=== PATIENT | male | born 1940 | race Caucasian/White ===

== ENCOUNTER 2023-10-18 10:50 | Inpatient (IN) | payer MEDICARE, OTHER, SELFPAY ==
[2023-10-18] VITALS (14 sets, daily range): BP systolic 97–122; BP diastolic 55–77; PULSE 64–97; RESP 12–25; TEMP 36.4–38.1; O2SAT 88–95; BMI 24.3; BMI 23.8
--- NOTE | 2023-10-18 11:16 | ED_ITS ---
HPI - General Adult General Date Seen: 10/18/23 Chief complaint: Shortness of Breath/Dyspnea Stated complaint: Low O2, short of breath Time Seen by Provider: 10/18/23 11:07 History of Present Illness HPI narrative: This is an 83-year-old male with a past medical history of hypertension (lisinopril 5 mg, hydrochlorothiazide 12.5 mg), type 2 diabetes, COPD. He sees the [facility] clinic for PCP. He has been feeling sick since Wednesday night with fever and shortness of breath. Has a home oximeter and readings were 85%. He and his indicate that he began to feel ill 3 days ago on Wednesday evening. He had been out to [place] with his family on Wednesday and apparently was feeling fine at that time. Over the weekend he has had malaise, fatigue, poor appetite, cough. They have a home pulse oximeter and it was reading saturations in the mid 80s for him. He was feeling mildly short of breath. No chest pain. Cough is productive of yellow sputum. No vomiting. No diarrhea. No rash. No definitive known sick exposure. He generally stays home. He has been out to restaurants recently with his family. No swelling in his legs. No history of heart disease. Does have a known history of COPD. Is not on home oxygen. Related Data Home Medications Medication Instructions Recorded Confirmed albuterol sulfate 90 mcg/actuation 2 inh inhalation QID PRN 10/18/23 10/18/23 aerosol inhaler atorvastatin 10 mg tablet 10 mg PO DAILY 10/18/23 10/18/23 hydrochlorothiazide 12.5 mg tablet 12.5 mg PO DAILY 10/18/23 10/18/23 latanoprost 0.005 % eye drops 1 drp ophthalmic (eye) QPM 10/18/23 10/18/23 lisinopril 5 mg tablet 5 mg PO DAILY 10/18/23 10/18/23 metformin 1,000 mg tablet 1,000 mg PO BID 10/18/23 10/18/23 timolol maleate 0.5 % eye drops 1 drp ophthalmic (eye) BID 10/18/23 10/18/23 Allergies Allergy/AdvReac Type Severity Reaction Status Date / Time No Known Drug Allergies Allergy Verified 10/18/23 11:02 PFSH PFS Social History What is your current living situation?: I presently have a place to live Problems where you live: no known problems Problems where you live details: NA In the past 12 months, utilities in danger of being shut off: no In past 12 months, lack of transportation kept you from medical appts, meetings, work, or getting things needed for daily living: yes In the past 12 mos, have been you worried that your food would run out before you had money to buy more?: never true In the past 12 mos, the food you bought just didn't last and you didn't have money to buy more?: never true Smoking Status: Never smoker Do you use any of these nicotine containing products: None How often do you have a drink containing alcohol: never How often do you have six or more drinks on one occasion: Never AUDIT-C Alcohol total score: 0 Non-prescribed substance use: denies use Caffeine: Yes How often does anyone, including family, friends and others, physically hurt you : unable to answer How often does anyone, including family, friends and others, insult or talk down to you: unable to answer How often does anyone, including family, friends and others, threaten you with harm: unable to answer How often does anyone, including family, friends and others, scream or curse at you: 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) Exam Narrative: Exam Narrative: Constitutional: Appears well-developed and well-nourished. Alert. Conversant, but hard of hearing. At this point breathing easily with nasal cannula. Oxygen sats 92% on 1 L Non toxic. HENT: Head: Atraumatic. Nose: Nose normal. Mouth/Throat: Oral mucosa is clear and moist. no trismus. Pharynx normal. Tonsils symmetric. No tonsillar enlargement, erythema, or exudate. Eyes: Conjunctivae normal. EOM normal. Pupils equal, round, and reactive to light. No scleral icterus. Neck: Normal range of motion. Neck supple. No tracheal deviation present. No JVD Cardiovascular: Normal rate, regular rhythm. No gallop. No friction rub. No murmur heard. Symmetric radial and posterior tibial artery pulses Pulmonary/Chest: Effort normal. No stridor. No respiratory distress. Very diminished with poor aeration. Few end-expiratory wheezes. No definite rales. No tenderness. Abdominal: Soft.No distension. No mass. No tenderness. No rebound. No guarding. Musculoskeletal: RUE: Normal range of motion. No tenderness. No deformity LUE: Normal range of motion. No tenderness. No deformity RLE: Normal range of motion. No edema. No tenderness. No deformity LLE: Normal range of motion. No edema. No tenderness. No deformity Neurological: Alert and oriented to person, place, and time. Normal strength. CN II-VII intact. No sensory deficit. GCS eye subscore is 4. GCS verbal subscore is 5. GCS motor subscore is 6. Normal coordination Skin: Skin is warm and dry. No rash noted. No pallor. Normal capillary refill. Psychiatric: Normal mood. Normal affect. Const: Vital Signs, click to edit/add: Vital Signs - 24 hr 10/18/23 11:04 10/18/23 11:14 10/18/23 12:05 Temperature 100.5 F H Pulse Rate [Pulse Oximeter] 97 Respiratory Rate 16 20 Blood Pressure [Ri ght Upper Arm] 122/58 L Pulse Oximetry 88 92 93 Oxygen Delivery Me thod Room Air Nasal Cannula Nasal Cannula Oxygen Flow Rate 1 1 10/18/23 14:15 10/18/23 14:30 10/18/23 14:45 Temperature Pulse Rate [Pulse Oximeter] 80 75 75 Respiratory Rate 13 12 19 Blood Pressure [Ri ght Upper Arm] 103/65 Pulse Oximetry 91 92 92 Oxygen Delivery Me thod Nasal Cannula Nasal Cannula Nasal Cannula Oxygen Flow Rate 1 1 1 10/18/23 15:00 10/18/23 15:15 10/18/23 15:30 Temperature Pulse Rate [Pulse Oximeter] 81 74 74 Respiratory Rate 25 H 18 20 Blood Pressure [Ri ght Upper Arm] 107/64 100/62 Pulse Oximetry 92 92 93 Oxygen Delivery Me thod Nasal Cannula Nasal Cannula Nasal Cannula Oxygen Flow Rate 1 1 1 10/18/23 15:45 10/18/23 16:00 Temperature Pulse Rate [Pulse Oximeter] 82 78 Respiratory Rate 25 H 14 Blood Pressure [Ri ght Upper Arm] 99/77 Pulse Oximetry 93 92 Oxygen Delivery Me thod Nasal Cannula Nasal Cannula Oxygen Flow Rate 1 1 Course Course ED Course: Recheck-feeling somewhat better after neb. Had chest percussive therapy from [facility] and had a production of a large yellow glob of sputum here Reevaluation(s) Reevaluation #1: At 1:00 p.m. informed that troponin was positive at 0.48. EKG does not show any obvious ischemia. He is not really having chest pain, just hypoxia and shortness of breath. Is also positive for both coronavirus and influenza a based on PCR. Suspect troponin might be elevated due to demand ischemia from hypoxia this weekend. Plan: Administer aspirin 162 mg p.o. now. Kidney function is fine so elevated troponin is not related to renal problems. Recheck troponin at 1:45 p.m. (2 hours after the 1st draw) to see if it is rising). Check D-dimer to rule out PE Recheck COVID/flu swab to confirm they are not false positives. If they are true positives, would treat with Decadron for hypoxia related to COVID and with Tamiflu for influenza Vital Signs Vital signs: Initial Vital Signs Temperature 100.5 F H 10/18/23 11:04 Temperature Source Temporal Artery Scan 10/18/23 11:04 Pulse Rate 97 10/18/23 11:04 Pulse Rhythm Regular 10/18/23 11:04 Pulse Strength 3+ Normal 10/18/23 11:04 Respiratory Rate 16 10/18/23 11:04 Blood Pressure 122/58 L 10/18/23 11:04 Blood Pressure Mean 79 10/18/23 11:04 Blood Pressure Position Sitting 10/18/23 11:04 Pulse Oximetry 88 10/18/23 11:04 Oxygen Delivery Method Room Air 10/18/23 11:04 Vital Signs Temperature 100.5 F H 10/18/23 11:04 Pulse Rate 97 10/18/23 11:04 Respiratory Rate 16 10/18/23 11:04 Blood Pressure 122/58 L 10/18/23 11:04 Pulse Oximetry 88 10/18/23 11:04 Oxygen Delivery Method Room Air 10/18/23 11:04 Temperature 97.6 F 10/18/23 16:26 Pulse Rate 80 10/18/23 16:26 Respiratory Rate 18 10/18/23 16:26 Blood Pressure 97/56 L 10/18/23 16:26 Pulse Oximetry 88 10/18/23 16:26 Oxygen Delivery Method Room Air 10/18/23 16:26 Oxygen Flow Rate 1 10/18/23 16:00 Medications Administered Medications: Generic Name Dose Route Start Last Admin Trade Name Freq PRN Reason Stop Dose Admin Heparin Sodium/Dextrose 25,000 unit in 500 mls @ 0 mls/hr 10/18/23 15:15 10/18/23 15:39 Heparin IV 10/18/23 20:00 850 unit/hr .Q0M BILLY 17 mls/hr Administration Protocol Per Protocol Discontinued Medications Generic Name Dose Route Start Last Admin Trade Name Rashad PRN Reason Stop Dose Admin Acetaminophen 1,000 mg 10/18/23 11:47 10/18/23 12:29 Acetaminophen 500 Mg Tablet PO 10/18/23 11:48 1,000 mg ONCE ONE Administration Albuterol/Ipratropium 1 neb 10/18/23 11:47 10/18/23 11:51 Iprat-Albut 0.5-2.5 Mg/3 Ml Neb IH 10/18/23 11:48 1 neb ONCE ONE Administration Aspirin 324 mg 10/18/23 13:00 10/18/23 13:21 Aspirin 81 Mg Tab.Chew PO 10/18/23 13:01 324 mg ONCE ONE Administration Heparin Sodium (Porcine) 4,000 unit 10/18/23 15:09 10/18/23 15:38 Heparin 5,000 Unit/0.5 Ml Inj IVP 10/18/23 15:10 4,000 unit ONCE ONE Administration Sodium Chloride 500 mls @ 500 mls/hr 10/18/23 11:47 10/18/23 13:22 0.9 % Sodium Chloride 500 Ml IV 10/18/23 12:46 Infused .Q1H ONE Infusion Methylprednisolone Sodium Succinate 125 mg 10/18/23 12:00 10/18/23 12:29 Methylprednisolone Sod Succ 62.5 Mg/Ml (125) IVP 125 mg Q6H BILLY Administration Oseltamivir Phosphate 75 mg 10/18/23 14:45 10/18/23 15:16 Oseltamivir Phosphate 75 Mg Capsule PO 10/18/23 14:46 75 mg ONCE ONE Administration Medical Decision Making [facility] Narrative Medical decision making narrative: Very pleasant 83-year-old gentleman presenting to the ER today with illness that began 3 days prior to arrival, on Wednesday with cough, fever, malaise. Clinical impression is is suggestive for probable influenza like illness. Rule out COVID, rule out pneumonia. With his hypoxia, consider cardiac causes such as STEMI, NSTEMI, CHF. Also consider pulmonary causes of hypoxia such as COPD, pneumothorax, pleural effusion Workup here in the ER initially showed or PCR positive for influenza and COVID. Given absence of any real high risk exposures I was skeptical about 2 positive tests. I had them repeat the PCR and repeat cup PCR is positive again for influenza a but negative for COVID. Suspect the 1st COVID test was probably a false positive. Will treat with Tamiflu for influenza a, even though he is beyond 48 hours of illness. Chest x-ray does not show any evidence for pneumonia, CHF, pleural effusion, pneumothorax. Consider possible PE. Patient is low risk for PE based on clinical presentation. D-dimer is or normal. Hold off on CT PA for now. Kidney function normal. Blood sugar 118. Lactic acid normal. No evidence for bacterial infection or sepsis at this time. EKG shows nonspecific changes in the inferior and lateral leads but no ST elevation or depression. Initial troponin is abnormal at 0.42. He is not actually having any chest pain. Repeat troponin 2 hours after the 1st is rising up to 0.7. Concerning for possible NSTEMI. Repeat EKG still shows no definite evolving ischemia or ST elevation. Old he is treated with aspirin. Will add heparin for possible NSTEMI. Unclear if this is truly a acute coronary syndrome or possibly just demand ischemia however with rising troponin, concerned about ACS. I initially felt the need to transfer to a Cardiology capable hospital. With patient's family requested if possible transfer to [facility]. We contacted the transfer line and they have no available beds. Their 2nd choice would be the [facility] system, possibly [place]. Consult with Cardiology from [facility]. Discussed what the travel assistant on-call for [facility], Dr. Shoemaker. We reviewed the patient's presentation, at rising troponin but EKG showing no definitive ischemia. After her feels that it is appropriate for him to stay here in [place] for troponin trending and echocardiogram. If troponin rises significantly or if echo shows significant abnormalities, transfer could be performed later. At this point with stable hemodynamics, even with an abnormal trop, no immediate need for catheterization or plan for catheter a should today would be undertaken Discussed with our hospitalist, Dr. Trujillo. He agrees to the patient here to [place]. Lab Data Labs: Lab Results 10/18/23 10/18/23 10/18/23 Range/Units 11:06 11:47 13:00 WBC 8.32 (4.50-11.00) K/uL RBC 4.96 (4.30-5.90) m/uL Hgb 13.7 (13.5-17.5) gm/dL Hct 43.1 (37.0-53.0) % MCV 87 (80-100) fL MCH 28 (26-34) pg MCHC 32 (32-36) gm/dL RDW Coeff of Renu 14.2 (11.5-15.5) % Plt Count 214 (140-440) K/uL Neut % (Auto) 85.9 H (42.0-72.0) % Lymph % (Auto) 7.1 L (20-44) % [place] % (Auto) 6.5 (0.0-11.0) % Eos % (Auto) 0.0 (0.0-7.0) % Baso % (Auto) 0.4 (0.0-3.0) % Neut # (Auto) 7.10 H (1.7-7.0) K/uL Lymph # (Auto) 0.60 L (0.90-2.90) K/uL [place] # (Auto) 0.50 (0.00-0.90) K/UL Eos # (Auto) 0.00 (0.00-0.50) K/uL Baso # (Auto) 0.03 (0.00-0.30) K/uL Abs Immat Gran (auto) 0.01 (0.00-0.30) K/uL Imm/Tot Granulo (auto) 0.1 % D-Dimer Quant (PE/DVT) 0.47 (0.00-0.50) ug/ml Sodium 135 (135-149) mmol/L Potassium 4.0 (3.6-5.1) mmol/L Chloride 100 (96-114) mmol/L Carbon Dioxide 22 (20-32) mmol/L Anion Gap 13 (7-15) mEq/L BUN 16 (7-30) mg/dL Creatinine 0.6 (0.5-1.5) mg/dL Estimated Creat Clear 55.10 Estimated GFR 96 ml/min Glucose 118 H (60-115) mg/dL Lactate 1.3 (0.5-1.9) mmol/L Calcium 9.3 (8.4-10.6) mg/dL Magnesium 1.9 (1.5-2.6) mg/dL Troponin I 0.48 H* (0.01-0.04) ng/mL SARS-CoV-2 (PCR) POSITIVE SARS-CoV-2 A Negative SARS-CoV-2 (Negative) Influenza Type A (PCR) POSITIVE PCR FLU A A POSITIVE PCR FLU A A (Negative) Influenza Type B (PCR) Negative PCR FLU B Negative PCR FLU B (Negative) RSV (PCR) Negative PCR RSV Negative PCR RSV (Negative) Lab Acknowledgement 10/18/23 10/18/23 Range/Units 14:00 14:12 WBC (4.50-11.00) K/uL RBC (4.30-5.90) m/uL Hgb (13.5-17.5) gm/dL Hct (37.0-53.0) % MCV (80-100) fL MCH (26-34) pg MCHC (32-36) gm/dL RDW Coeff of Renu (11.5-15.5) % Plt Count (140-440) K/uL Neut % (Auto) (42.0-72.0) % Lymph % (Auto) (20-44) % [place] % (Auto) (0.0-11.0) % Eos % (Auto) (0.0-7.0) % Baso % (Auto) (0.0-3.0) % Neut # (Auto) (1.7-7.0) K/uL Lymph # (Auto) (0.90-2.90) K/uL [place] # (Auto) (0.00-0.90) K/UL Eos # (Auto) (0.00-0.50) K/uL Baso # (Auto) (0.00-0.30) K/uL Abs Immat Gran (auto) (0.00-0.30) K/uL Imm/Tot Granulo (auto) % D-Dimer Quant (PE/DVT) 0.36 (0.00-0.50) ug/ml Sodium (135-149) mmol/L Potassium (3.6-5.1) mmol/L Chloride (96-114) mmol/L Carbon Dioxide (20-32) mmol/L Anion Gap (7-15) mEq/L BUN (7-30) mg/dL Creatinine (0.5-1.5) mg/dL Estimated Creat Clear Estimated GFR ml/min Glucose (60-115) mg/dL Lactate (0.5-1.9) mmol/L Calcium (8.4-10.6) mg/dL Magnesium (1.5-2.6) mg/dL Troponin I 0.70 H* (0.01-0.04) ng/mL SARS-CoV-2 (PCR) (Negative) Influenza Type A (PCR) (Negative) Influenza Type B (PCR) (Negative) RSV (PCR) (Negative) Lab Acknowledgement Test Added Imaging Data Chest x-ray: Attestation: I have reviewed the pertinent imaging results. My impression: No acute infiltrate, per Dr. Lott Radiologist's impression: Findings/Impression: Cardiovascular and mediastinum: Normal heart size with atherosclerotic calcification. Lungs and pleural spaces: Mild hyperinflation with flattening of the hemidiaphragms suggesting underlying emphysema or reactive airways disease. Some bronchial wall thickening and can be seen in bronchitis. Minimal discoid atelectasis. 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 Bones and soft tissues: No significant findings ECG Data Attestation: I personally reviewed and interpreted this ECG as follows: Interpretation: Normal sinus rhythm rate 95 [place] 164 QRS axis normal axis. No pathologic Q-waves. ST segment/T wave: No acute ST segment elevation. Possible ST depression in lead [address] and T-wave changes in V5, V6. QTc: 432 A repeat EKG Normal sinus rhythm . Rate 88 [place] 174 QRS axis normal axis. No pathologic Q-waves. ST segment/T wave: Nonspecific ST and T-wave changes. No definite ST depression in 2, 3, AVF. Still subtle changes there. Nonspecific T-wave changes in V5, V6. No ST segment elevation. QTc: 430 Discharge Plan Discharge Clinical Impression: Influenza A, Acute non-ST elevation myocardial infarction (NSTEMI), Hypoxia, COPD exacerbation Patient Disposition: Xfer Other
--- NOTE | 2023-10-18 11:47 | CRLHL7_ITS ---
For Patients: As a result of the Cures Act, medical imaging exams and procedure reports are released immediately into your electronic medical record. You may view this report before your referring provider. If you have questions, please contact your health care provider. Indication: Fever, cough and hypoxia Technique: Chest 2 views Comparison: None Findings/Impression: Cardiovascular and mediastinum: Normal heart size with atherosclerotic calcification. Lungs and pleural spaces: Mild hyperinflation with flattening of the hemidiaphragms suggesting underlying emphysema or reactive airways disease. Some bronchial wall thickening and can be seen in bronchitis. Minimal discoid atelectasis. 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 Bones and soft tissues: No significant findings. Dictated by Lemuel Noel MD @ 10/18/2023 1:06:35 PM (Electronically Signed)
[2023-10-18] MEDS: IPRAT-ALBUT 0.5-2.5 MG/3 ML NEB 1 NEB IH ×3 (11:51→21:10)
[2023-10-18 11:59] LABS: PCR FLU A POSITIVE PCR FLU A (Negative); PCR FLU B Negative PCR FLU B (Negative); PCR RSV Negative PCR RSV (Negative); SARS PCR* POSITIVE SARS-CoV-2 (Negative)
--- NOTE | 2023-10-18 12:10 | RESP.RT ---
PEP with [employer], patient used well good exhalation, promoting good chest shake and productive cough. DuoNeb with small volume nebulizer, mouth piece and Oxygen flow meter at 6 Lpm. patient used well, improved air movement post treatment.
[2023-10-18 12:22] LABS: Lactate* 1.3 mmol/L (0.5-1.9)
[2023-10-18 12:26] LABS: Basophils Absolute Auto 0.03 K/uL (0.00-0.30); Basophils Percent Auto 0.4 % (0.0-3.0); Hematocrit 43.1 % (37.0-53.0); Hemoglobin* 13.7 gm/dL (13.5-17.5); Immature Granulocytes Abs Auto 0.01 K/uL (0.00-0.30); Immature Granulocytes Pct Auto 0.1 %; Lymphocytes Percent Auto 7.1 % (20-44); Mean Corpuscular HGB Conc 32 gm/dL (32-36); Mean Corpuscular Hemoglobin 28 pg (26-34); Mean Corpuscular Volume 87 fL (80-100); Monocytes Percent Auto 6.5 % (0.0-11.0); Neutrophils Percent Auto 85.9 % (42.0-72.0); Platelet Count* 214 K/uL (140-440); RDW Coefficient of Variation % 14.2 % (11.5-15.5); Red Blood Count 4.96 m/uL (4.30-5.90); White Blood Count* 8.32 K/uL (4.50-11.00)
[2023-10-18] MEDS: METHYLPREDNISOLONE SOD SUCC 62.5 MG/ML (125) 125 MG IVP (12:29)
[2023-10-18] MEDS: ACETAMINOPHEN 500 MG TABLET 1000 MG PO (12:29)
[2023-10-18 12:35] LABS: Slide Review Reflex No
[2023-10-18] MEDS: 0.9 % SODIUM CHLORIDE 500 ML 500 ML IV (12:36)
[2023-10-18 12:40] LABS: Chloride* 100 mmol/L (96-114); Sodium* 135 mmol/L (135-149)
[2023-10-18 12:43] LABS: Anion Gap 13 mEq/L (7-15); Blood Urea Nitrogen* 16 mg/dL (7-30); Carbon Dioxide* 22 mmol/L (20-32); Creatinine* 0.6 mg/dL (0.5-1.5); Estimated Glomerular Filt Rate 96 ml/min
[2023-10-18 12:44] LABS: Calcium* 9.3 mg/dL (8.4-10.6); Glucose* 118 mg/dL (60-115)
[2023-10-18 12:57] LABS: Troponin I* 0.48 ng/mL (0.01-0.04)
[2023-10-18] MEDS: ASPIRIN 81 MG TAB.CHEW 324 MG PO (13:21)
[2023-10-18 13:56] LABS: D Dimer Quantitative* 0.47 ug/ml (0.00-0.50)
[2023-10-18 14:31] LABS: PCR FLU A POSITIVE PCR FLU A (Negative); PCR FLU B Negative PCR FLU B (Negative); PCR RSV Negative PCR RSV (Negative); SARS PCR* Negative SARS-CoV-2 (Negative)
[2023-10-18 14:52] LABS: D Dimer Quantitative* 0.36 ug/ml (0.00-0.50)
[2023-10-18] MEDS: OSELTAMIVIR PHOSPHATE 75 MG CAPSULE PO (15:16)
[2023-10-18] MEDS: HEPARIN 5,000 UNIT/0.5 ML INJ 4000 UNIT IVP (15:38)
[2023-10-18] MEDS: HEPARIN 25,000 UNIT/500 ML BAG 17 UNIT IV (15:39)
[2023-10-18 17:11] LABS: Magnesium* 1.9 mg/dL (1.5-2.6)
[2023-10-18 17:38] LABS: SARS Antigen* Negative (Negative)
[2023-10-18 17:54] LABS: NT Pro B Type NatriureticPept* 158 pg/mL
[2023-10-18] MEDS: METOPROLOL TARTRATE 25 MG TABLET PO ×2 (18:39→21:09)
[2023-10-18] MEDS: LATANOPROST 0.005% OPHTH 1 DROP EYE-BOTH (19:09)
--- NOTE | 2023-10-18 19:44 | P.IMHP_ITS ---
Hospitalist- H&P: HPI History of Present Illness Date Seen: 10/18/23 Chief complaint: Low O2, short of breath Narrative: Jose Oviedo is a 83 year old male admitted to the hospital with onset of fatigue cough and dyspnea 3 days prior to admission. At that time he was beginning to feel tired. He laid down to go to bed but was dyspneic laying down and could not sleep because of dyspnea and cough. He slept in the recliner poorly that night. Over the weekend he continued to have dyspnea and cough. He was not aware of a fever. Cough is productive of yellowish sputum. He has eaten very little food or fluid in the last 2 days. He has monitors oxygen at home with the pulse oximeter and it was in the mid 80s for him. He does have known COPD but is not on home oxygen. He has no known exposures to anybody else with illness. Review of Systems Narrative: Review of systems unremarkable except for symptoms described above for the last 3 days. [facility] Medical History (Updated 10/18/23 @ 20:04 by Elio Trujillo MD) Vertebral artery stenosis ?I65.09 - Occlusion and stenosis of unspecified vertebral artery (ICD-10) Hyperlipemia ?E78.5 - Hyperlipidemia, unspecified (ICD-10) Diabetes ?E11.9 - Type 2 diabetes mellitus without complications (ICD-10) Hypertension ?I10 - Essential (primary) hypertension (ICD-10) COPD (chronic obstructive pulmonary disease) ?J44.9 - Chronic obstructive pulmonary disease, unspecified (ICD-10) Family History (Updated 10/18/23 @ 19:51 by Elio Trujillo MD) Other Cardiovascular disease Social History (Updated 10/18/23 @ 19:56 by Elio Trujillo MD) Narrative: he lives with his in [place]. is healthcare power of attorney lawyer. Code status is DNR. He is a former smoker. Does not drink alcohol. What is your current living situation?: I presently have a place to live Problems where you live: no known problems Problems where you live details: NA In the past 12 months, utilities in danger of being shut off: no In past 12 months, lack of transportation kept you from medical appts, meetings, work, or getting things needed for daily living: yes In the past 12 mos, have been you worried that your food would run out before you had money to buy more?: never true In the past 12 mos, the food you bought just didn't last and you didn't have money to buy more?: never true Smoking Status: Never smoker Do you use any of these nicotine containing products: None How often do you have a drink containing alcohol: never How often do you have six or more drinks on one occasion: Never AUDIT-C Alcohol total score: 0 Non-prescribed substance use: denies use Caffeine: Yes How often does anyone, including family, friends and others, physically hurt you : unable to answer How often does anyone, including family, friends and others, insult or talk down to you: unable to answer How often does anyone, including family, friends and others, threaten you with harm: unable to answer How often does anyone, including family, friends and others, scream or curse at you: 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[employer]) Meds Home Medications and Allergies Home Medications Medication Instructions Recorded Confirmed Type albuterol sulfate 90 mcg/actuation 2 inh inhalation QID PRN 10/18/23 10/18/23 History aerosol inhaler ascorbic acid (vitamin C) 500 mg 500 mg PO DAILY 10/18/23 10/18/23 History capsule aspirin 81 mg tablet,delayed 81 mg PO DAILY 10/18/23 10/18/23 History release (Adult Low Dose Aspirin) atorvastatin 10 mg tablet 10 mg PO DAILY 10/18/23 10/18/23 History cholecalciferol (vitamin D3) 25 25 mcg PO DAILY 10/18/23 10/18/23 History mcg (1,000 unit) capsule hydrochlorothiazide 12.5 mg tablet 12.5 mg PO DAILY 10/18/23 10/18/23 History latanoprost 0.005 % eye drops 1 drp ophthalmic (eye) QPM 10/18/23 10/18/23 History lisinopril 5 mg tablet 5 mg PO DAILY 10/18/23 10/18/23 History metformin 500 mg tablet 500 mg PO BIDWMEAL 10/18/23 10/18/23 History timolol maleate 0.5 % eye drops 1 drp ophthalmic (eye) BID 10/18/23 10/18/23 History Allergies Allergy/AdvReac Type Severity Reaction Status Date / Time No Known Drug Allergies Allergy Verified 10/18/23 11:02 Exam Narrative: Exam Narrative: he is alert and appears in no distress. He gives his own history but his answers many of the questions about his medical history and medications. Head is without trauma. No facial asymmetry. Eyes are normal. Extraocular movements are full. Oropharynx is normal. Neck is supple without mass or adenopathy. Respirations with marked decreased breath sounds throughout all lung pineda. Occasional wheeze and occasional basilar crackle is noted. Cardiovascular: S1, S2, very distant heart sounds. Abdomen is soft without tenderness or mass. External genitalia normal. Extremities without edema. He has diminished pedal pulses. Moves all 4 extremities well. No rash. Const: Vital Signs, click to edit/add: Vital Signs - 24 hr 10/18/23 11:04 10/18/23 11:14 10/18/23 12:05 Temperature 100.5 F H Pulse Rate [Left P ulse Oximeter] Pulse Rate [Pulse Oximeter] 97 Respiratory Rate 16 20 Blood Pressure [Le ft Arm] Blood Pressure [Ri ght Upper Arm] 122/58 L Pulse Oximetry 88 92 93 Oxygen Delivery Me thod Room Air Nasal Cannula Nasal Cannula Oxygen Flow Rate 1 1 10/18/23 14:15 10/18/23 14:30 10/18/23 14:45 Temperature Pulse Rate [Left P ulse Oximeter] Pulse Rate [Pulse Oximeter] 80 75 75 Respiratory Rate 13 12 19 Blood Pressure [Le ft Arm] Blood Pressure [Ri ght Upper Arm] 103/65 Pulse Oximetry 91 92 92 Oxygen Delivery Me thod Nasal Cannula Nasal Cannula Nasal Cannula Oxygen Flow Rate 1 1 1 10/18/23 15:00 10/18/23 15:15 10/18/23 15:30 Temperature Pulse Rate [Left P ulse Oximeter] Pulse Rate [Pulse Oximeter] 81 74 74 Respiratory Rate 25 H 18 20 Blood Pressure [Le ft Arm] Blood Pressure [Ri ght Upper Arm] 107/64 100/62 Pulse Oximetry 92 92 93 Oxygen Delivery Me thod Nasal Cannula Nasal Cannula Nasal Cannula Oxygen Flow Rate 1 1 1 10/18/23 15:45 10/18/23 16:00 10/18/23 16:26 Temperature 97.6 F Pulse Rate [Left P ulse Oximeter] 80 Pulse Rate [Pulse Oximeter] 82 78 Respiratory Rate 25 H 14 18 Blood Pressure [Le ft Arm] 97/56 L Blood Pressure [Ri ght Upper Arm] 99/77 Pulse Oximetry 93 92 88 Oxygen Delivery Me thod Nasal Cannula Nasal Cannula Room Air Oxygen Flow Rate 1 1 10/18/23 16:26 10/18/23 16:26 Temperature Pulse Rate [Left P ulse Oximeter] Pulse Rate [Pulse Oximeter] Respiratory Rate 18 Blood Pressure [Le ft Arm] Blood Pressure [Ri ght Upper Arm] Pulse Oximetry 88 88 Oxygen Delivery Me thod Room Air Oxygen Flow Rate Documenting provider has reviewed patient's vital signs: yes Hospitalist - H&P: Result Labs Labs: Short CBC 10/18/23 Range/Units 11:47 WBC 8.32 (4.50-11.00) K/uL Hgb 13.7 (13.5-17.5) gm/dL Hct 43.1 (37.0-53.0) % Plt Count 214 (140-440) K/uL BMP 10/18/23 11:47 Sodium 135 Potassium 4.0 Chloride 100 Carbon Dioxide 22 BUN 16 Creatinine 0.6 Glucose 118 H Calcium 9.3 Cardiac Enzymes 10/18/23 10/18/23 Range/Units 11:47 14:00 Troponin I 0.48 H* 0.70 H* (0.01-0.04) ng/mL ECG Attestation: I personally reviewed and interpreted this ECG as follows: ECG interpretation date: 10/18/23 Interpretation: Normal sinus rhythm. Inferior and lateral nonspecific ST-T depression Imaging Chest x-ray: Radiologist's impression: ndication: Fever, cough and hypoxia Technique: Chest 2 views Comparison: None Findings/Impression: Cardiovascular and mediastinum: Normal heart size with atherosclerotic calcification. Lungs and pleural spaces: Mild hyperinflation with flattening of the hemidiaphragms suggesting underlying emphysema or reactive airways disease. Some bronchial wall thickening and can be seen in bronchitis. Minimal discoid atelectasis. 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 Bones and soft tissues: No significant findings Assessment and Plan Assessment and plan (1) Influenza A: Problem comment: likely the primary cause of illnesses below. Treat with Tamiflu Status: Acute (2) Acute non-ST elevation myocardial infarction (NSTEMI): Problem comment: likely stress-induced ischemia. Conservative management with aspirin and enoxaparin, high-dose statin and beta-sebas. Trend troponin. Emergency department physician spoke with Cardiology at [facility] who recommended conservative management here unless patient is getting worse. Status: Acute (3) COPD exacerbation: Problem comment: Inhaled bronchodilators and steroids. Oxygen as needed Status: Acute (4) Hypoxia: Problem comment: due to COPD and influenza. Oxygen as needed. Status: Acute (5) COVID: Problem comment: had 2 tests for COVID in the emergency department. The 1st 1 was positive. The 2nd was negative. Uncertain of clinical significance. Conservative management with oxygen and management of comorbid conditions Status: Acute Plan Patient admitted to the hospital for management of influenza a with non STEMI and COPD exacerbation. Plan as above. total time spent today is 80 minutes, 50 minutes in coordination of care discussing with patient, family and other providers management of influenza a, non STEMI, COPD and possible COVID
[2023-10-18 19:48] LABS: INR 0.99 (0.91-1.10); Prothrombin Time 13.7 Seconds
[2023-10-18 19:49] LABS: Partial Thromboplastin Time* 35 Seconds (23-33)
[2023-10-18 19:58] LABS: HCO3 VBG 25 mmol/L (21-28); PCO2 VBG 44 mmHG (40-50); PO2 VBG 43.3 mmHG (25-47); pH VBG 7.358 (7.32-7.43)
--- NOTE | 2023-10-18 20:00 | PC.NURSE ---
Nursing Care Hours: [id number] Pt this shift arrived to the floor on stretcher in pleasant mood. Walked independently to bathroom and chair. Soft BP, spO2 88-89% RA. per hospitalist, spo2 should remain at 90% or greater. NC 1L applied, spo2 at 93%. Pt agreed to call before getting up d/t extra tubings and wires. Heparin running at 850units/hr, ordered to be stopped at 1999. Educated on Aerobika use. Pt took home metformin at dinner time, so science writer non administered scheduled dose. Antigen swab sent to lab. No c/o pain.
[2023-10-18 20:51] LABS: Troponin I* 0.68 ng/mL (0.01-0.04)
[2023-10-18 21:02] LABS: SARS PCR* Negative SARS-CoV-2 (Negative)
[2023-10-18] MEDS: ENOXAPARIN 80 MG/0.8 ML INJ SUBCUT (21:10)
[2023-10-18] MEDS: SODIUM CHLORIDE 0.9 % (FLUSH) 10 ML SYRINGE 5 ML IVF (21:10)
[2023-10-18] MEDS: OSELTAMIVIR 30 MG CAPSULE PO (21:10)
[2023-10-19] VITALS (11 sets, daily range): BP systolic 97–138; BP diastolic 60–83; PULSE 58–81; RESP 16–18; TEMP 36.3–37; O2SAT 91–98
--- NOTE | 2023-10-19 06:03 | PC.NURSE ---
End of shift report [id number]: Alert and oriented x 4. Denies any shortness of breath or chest pain. Covid retest negative, patient changed to influenza precautions. O2 sats maintained at >90% on 1L per NC. Lung sounds diminished bilaterally with fine crackles in right base. Patient has moist cough, unable to expectorate sputum, utilizing Aerobica independently. Independent with ambulation and toileting.
[2023-10-19 06:31] LABS: HCO3 VBG 28 mmol/L (21-28); PCO2 VBG 48 mmHG (40-50); PO2 VBG 31.4 mmHG (25-47); pH VBG 7.368 (7.32-7.43)
[2023-10-19 06:38] LABS: Hematocrit 40.7 % (37.0-53.0); Hemoglobin* 13.1 gm/dL (13.5-17.5); Immature Granulocytes Abs Auto 0.01 K/uL (0.00-0.30); Immature Granulocytes Pct Auto 0.1 %; Lymphocytes Percent Auto 12.3 % (20-44); Mean Corpuscular HGB Conc 32 gm/dL (32-36); Mean Corpuscular Hemoglobin 28 pg (26-34); Mean Corpuscular Volume 87 fL (80-100); Monocytes Percent Auto 7.8 % (0.0-11.0); Neutrophils Percent Auto 79.8 % (42.0-72.0); Platelet Count* 236 K/uL (140-440); Red Blood Count 4.69 m/uL (4.30-5.90); White Blood Count* 7.05 K/uL (4.50-11.00)
[2023-10-19 06:52] LABS: Chloride* 100 mmol/L (96-114); Potassium* 4.3 mmol/L (3.6-5.1); Sodium* 137 mmol/L (135-149)
[2023-10-19 06:55] LABS: Anion Gap 14 mEq/L (7-15); Blood Urea Nitrogen* 23 mg/dL (7-30); Carbon Dioxide* 23 mmol/L (20-32); Creatinine* 0.6 mg/dL (0.5-1.5); Est. Creatinine Clearance* 56.95; Estimated Glomerular Filt Rate 96 ml/min; Glucose* 109 mg/dL (60-115)
[2023-10-19 06:56] LABS: Calcium* 9.3 mg/dL (8.4-10.6)
[2023-10-19 07:09] LABS: Slide Review Reflex No
[2023-10-19 07:19] LABS: Troponin I* 0.55 ng/mL (0.01-0.04)
[2023-10-19] MEDS: lisinopriL 5 MG TABLET PO (08:42)
[2023-10-19] MEDS: OSELTAMIVIR 30 MG CAPSULE PO ×2 (08:43→20:30)
[2023-10-19] MEDS: predniSONE 20 MG TABLET 60 MG PO (08:43)
[2023-10-19] MEDS: METFORMIN 500 MG TABLET PO ×2 (08:43→20:31)
[2023-10-19] MEDS: ENOXAPARIN 80 MG/0.8 ML INJ SUBCUT ×2 (08:45→20:31)
[2023-10-19] MEDS: IPRAT-ALBUT 0.5-2.5 MG/3 ML NEB 1 NEB IH ×4 (08:45→20:31)
[2023-10-19] MEDS: timoloL maleate 0.5 % 1 DROP EYE-BOTH ×2 (08:46→20:32)
[2023-10-19] MEDS: SODIUM CHLORIDE 0.9 % (FLUSH) 10 ML SYRINGE 5 ML IVF ×2 (08:46→20:36)
[2023-10-19] MEDS: METOPROLOL TARTRATE 25 MG TABLET PO ×2 (08:59→20:30)
[2023-10-19 09:24] LABS: Hemoglobin A1C* 6.2 % (0-5.6)
[2023-10-19 09:55] LABS: INR 0.89 (0.91-1.10); Prothrombin Time 12.6 Seconds
[2023-10-19 12:35] LABS: Troponin I* 0.47 ng/mL (0.01-0.04)
--- NOTE | 2023-10-19 12:46 | P.IMPN_ITS ---
Progress Note: A&P Assessment and plan (1) Influenza A: Problem details: -improving -off oxygen -day 2 of renally dosed tamiflu (10/18-10/23) -continue supportive cares Status: Acute (2) Acute non-ST elevation myocardial infarction (NSTEMI): Problem details: - -demand/stress ischemia - treatment dosed anticoagulation, aspirin, metoprolol, troponin is trending down - echo 10/19 Status: Acute (3) COPD exacerbation: Problem details: -nebs, po prednisone -oxygen prn -antiviral treatment for influenza A -no antibiotics Status: Acute Subjective Date Seen: 10/19/23 Interval history: Daily Progress Note - Hospital Medicine Day #: 2 CC: Influenza a, non-STEMI, diabetes OVERNIGHT UPDATES FROM STAFF & MED, LAB, IMAGING UPDATES -much improved overnight. Now off oxygen. -troponin has peaked and is down trending -patient is seen bedside with both his daughter and with lots of questions. Quite animated. Objective: awake, alert in his chair. Vitals: see above Lungs: Clear. Cardiac: S1S2. scattered rhonchi. Disposition/Potential discharge - Likely to return to previous living situation. Exam Const: Vital Signs, click to edit/add: Vital Signs - 24 hr 10/18/23 14:15 10/18/23 14:30 10/18/23 14:45 Temperature Pulse Rate Pulse Rate [Left P ulse Oximeter] Pulse Rate [Pulse Oximeter] 80 75 75 Pulse Rate [Right Radial] Respiratory Rate 13 12 19 Blood Pressure [Le ft Arm] Blood Pressure [Ri ght Upper Arm] 103/65 Pulse Oximetry 91 92 92 Oxygen Delivery Me thod Nasal Cannula Nasal Cannula Nasal Cannula Oxygen Flow Rate 1 1 1 10/18/23 15:00 10/18/23 15:15 10/18/23 15:30 Temperature Pulse Rate Pulse Rate [Left P ulse Oximeter] Pulse Rate [Pulse Oximeter] 81 74 74 Pulse Rate [Right Radial] Respiratory Rate 25 H 18 20 Blood Pressure [Le ft Arm] Blood Pressure [Ri ght Upper Arm] 107/64 100/62 Pulse Oximetry 92 92 93 Oxygen Delivery Me thod Nasal Cannula Nasal Cannula Nasal Cannula Oxygen Flow Rate 1 1 1 10/18/23 15:45 10/18/23 16:00 10/18/23 16:26 Temperature 97.6 F Pulse Rate Pulse Rate [Left P ulse Oximeter] 80 Pulse Rate [Pulse Oximeter] 82 78 Pulse Rate [Right Radial] Respiratory Rate 25 H 14 18 Blood Pressure [Le ft Arm] 97/56 L Blood Pressure [Ri ght Upper Arm] 99/77 Pulse Oximetry 93 92 88 Oxygen Delivery Me thod Nasal Cannula Nasal Cannula Room Air Oxygen Flow Rate 1 1 10/18/23 16:26 10/18/23 16:26 10/18/23 19:00 Temperature Pulse Rate Pulse Rate [Left P ulse Oximeter] Pulse Rate [Pulse Oximeter] Pulse Rate [Right Radial] 64 Respiratory Rate 18 22 Blood Pressure [Le ft Arm] 108/70 Blood Pressure [Ri ght Upper Arm] Pulse Oximetry 88 88 94 Oxygen Delivery Me thod Room Air Room Air Oxygen Flow Rate 1 10/18/23 23:00 10/18/23 23:00 10/18/23 23:00 Temperature Pulse Rate 64 Pulse Rate [Left P ulse Oximeter] 72 Pulse Rate [Pulse Oximeter] Pulse Rate [Right Radial] Respiratory Rate 22 20 Blood Pressure [Le ft Arm] Blood Pressure [Ri ght Upper Arm] Pulse Oximetry 95 Oxygen Delivery Me thod Room Air Oxygen Flow Rate 1 10/18/23 23:00 10/19/23 02:37 10/19/23 06:56 Temperature 98.3 F 98.1 F Pulse Rate 59 L Pulse Rate [Left P ulse Oximeter] 58 L Pulse Rate [Pulse Oximeter] Pulse Rate [Right Radial] 72 Respiratory Rate 20 16 Blood Pressure [Le ft Arm] 110/55 L 97/60 Blood Pressure [Ri ght Upper Arm] Pulse Oximetry 95 92 Oxygen Delivery Me thod Nasal Cannula Nasal Cannula Oxygen Flow Rate 1 1 10/19/23 07:42 10/19/23 07:44 10/19/23 07:44 Temperature 98.4 F Pulse Rate Pulse Rate [Left P ulse Oximeter] 64 64 Pulse Rate [Pulse Oximeter] Pulse Rate [Right Radial] 64 64 Respiratory Rate 18 18 18 Blood Pressure [Le ft Arm] 119/78 Blood Pressure [Ri ght Upper Arm] Pulse Oximetry 98 98 Oxygen Delivery Me thod Nasal Cannula Nasal Cannula Oxygen Flow Rate 1 1 10/19/23 11:17 Temperature 98.6 F Pulse Rate Pulse Rate [Left P ulse Oximeter] 71 Pulse Rate [Pulse Oximeter] Pulse Rate [Right Radial] 71 Respiratory Rate 18 Blood Pressure [Le ft Arm] 108/62 Blood Pressure [Ri ght Upper Arm] Pulse Oximetry 93 Oxygen Delivery Me thod Nasal Cannula Oxygen Flow Rate 1 Labs Labs: Laboratory Results - last 24 hr 10/18/23 10/18/23 10/18/23 11:47 13:00 14:00 WBC RBC Hgb Hct MCV MCH MCHC RDW Coeff of Renu Plt Count Neut % (Auto) Lymph % (Auto) [place] % (Auto) Eos % (Auto) Baso % (Auto) Neut # (Auto) Lymph # (Auto) [place] # (Auto) Eos # (Auto) Baso # (Auto) Abs Immat Gran (auto) Imm/Tot Granulo (auto) INR APTT D-Dimer Quant (PE/DVT) 0.47 0.36 VBG pH VBG pCO2 VBG pO2 VBG HCO3 Sodium 135 Potassium 4.0 Chloride 100 Carbon Dioxide 22 Anion Gap 13 BUN 16 Creatinine 0.6 Estimated Creat Clear 55.10 Estimated GFR 96 Glucose 118 H Hemoglobin A1c Calcium 9.3 Magnesium 1.9 Troponin I 0.48 H* 0.70 H* NT-Pro-B Natriuret Pep 158 SARS-CoV-2 (PCR) Negative SARS-CoV-2 Influenza Type A (PCR) POSITIVE PCR FLU A A Influenza Type B (PCR) Negative PCR FLU B RSV (PCR) Negative PCR RSV SARS-CoV-2 Ag (Rapid) Lab Acknowledgement 10/18/23 10/18/23 10/18/23 14:10 14:12 16:37 WBC RBC Hgb Hct MCV MCH MCHC RDW Coeff of Renu Plt Count Neut % (Auto) Lymph % (Auto) [place] % (Auto) Eos % (Auto) Baso % (Auto) Neut # (Auto) Lymph # (Auto) [place] # (Auto) Eos # (Auto) Baso # (Auto) Abs Immat Gran (auto) Imm/Tot Granulo (auto) INR 0.99 APTT 35 H D-Dimer Quant (PE/DVT) VBG pH VBG pCO2 VBG pO2 VBG HCO3 Sodium Potassium Chloride Carbon Dioxide Anion Gap BUN Creatinine Estimated Creat Clear Estimated GFR Glucose Hemoglobin A1c Calcium Magnesium Troponin I NT-Pro-B Natriuret Pep SARS-CoV-2 (PCR) Influenza Type A (PCR) Influenza Type B (PCR) RSV (PCR) SARS-CoV-2 Ag (Rapid) Lab Acknowledgement Test Added Test Added 10/18/23 10/18/23 10/18/23 16:53 19:41 19:53 WBC RBC Hgb Hct MCV MCH MCHC RDW Coeff of Renu Plt Count Neut % (Auto) Lymph % (Auto) [place] % (Auto) Eos % (Auto) Baso % (Auto) Neut # (Auto) Lymph # (Auto) [place] # (Auto) Eos # (Auto) Baso # (Auto) Abs Immat Gran (auto) Imm/Tot Granulo (auto) INR APTT D-Dimer Quant (PE/DVT) VBG pH 7.358 VBG pCO2 44 VBG pO2 43.3 VBG HCO3 25 Sodium Potassium Chloride Carbon Dioxide Anion Gap BUN Creatinine Estimated Creat Clear Estimated GFR Glucose Hemoglobin A1c Calcium Magnesium Troponin I 0.68 H* NT-Pro-B Natriuret Pep SARS-CoV-2 (PCR) Negative SARS-CoV-2 Influenza Type A (PCR) Influenza Type B (PCR) RSV (PCR) SARS-CoV-2 Ag (Rapid) Negative Lab Acknowledgement 10/19/23 10/19/23 10/19/23 06:05 08:10 11:55 WBC 7.05 RBC 4.69 Hgb 13.1 L Hct 40.7 MCV 87 MCH 28 MCHC 32 RDW Coeff of Renu 14.0 Plt Count 236 Neut % (Auto) 79.8 H Lymph % (Auto) 12.3 L Dod[place]idge % (Auto) 7.8 Eos % (Auto) 0.0 Baso % (Auto) 0.0 Neut # (Auto) 5.60 Lymph # (Auto) 0.90 Dod[place]idge # (Auto) 0.50 Eos # (Auto) 0.00 Baso # (Auto) 0.00 Abs Immat Gran (auto) 0.01 Imm/Tot Granulo (auto) 0.1 INR 0.89 L APTT D-Dimer Quant (PE/DVT) VBG pH 7.368 VBG pCO2 48 VBG pO2 31.4 VBG HCO3 28 Sodium 137 Potassium 4.3 Chloride 100 Carbon Dioxide 23 Anion Gap 14 BUN 23 Creatinine 0.6 Estimated Creat Clear 56.95 Estimated GFR 96 Glucose 109 Hemoglobin A1c 6.2 H Calcium 9.3 Magnesium Troponin I 0.55 H* 0.47 H* NT-Pro-B Natriuret Pep SARS-CoV-2 (PCR) Influenza Type A (PCR) Influenza Type B (PCR) RSV (PCR) SARS-CoV-2 Ag (Rapid) Lab Acknowledgement Test Added
--- NOTE | 2023-10-19 14:19 | PC.NURSE ---
End of shift: pt has been very pleasant. family is here and loving and caring. SL in right arm was d/c per pt request. no pain Alert and oriented x 4. Denies any shortness of breath or chest pain. trops are trending back to normal. O2 sats 95% on RA. LS are diminish bilaterally with fine crackles in the bases. encouraged TCDB and Aerobica use, independently. Independent in the room. he is eating, drinking and voiding with no problems
[2023-10-19] MEDS: LATANOPROST 0.005% OPHTH 1 DROP EYE-BOTH (18:21)
[2023-10-19] MEDS: ATORVASTATIN 10 MG TABLET 40 MG PO (20:29)
[2023-10-19] MEDS: ASPIRIN 81 MG TABLET EC PO (20:30)
--- NOTE | 2023-10-19 22:28 | PC.NURSE ---
Shift note ([id number]): The pt has been very pleasant and cooperative ; Denied chest pain and short of breath at rest; Spo2 has been in the 90s in RA. No fever noted. Coughing up green sputum intermittently. The pt has been stating that he is feeling a lot better and thanking our staff for everything we have done for him to get him well. Blood glucose at 2100 was 166; the pt refused taking sliding scale Insulin despite educating him. The pt appeared without any acute distress throughout the shift.
[2023-10-20 04:20] VITALS: BP 109/67; PULSE 64; RESP 16; TEMP 36.7; O2SAT 92
--- NOTE | 2023-10-20 06:27 | PC.NURSE ---
End of shift nursing note, care [id number]: Pt alert and oriented to questions. Pt expressed multiple frustrations at start of shift, stating he isn't diabetic and has never used insulin and his blood sugars have been being checked incorrectly at incorrect times. Car Pick Up Driver educated on reasoning of insulin being ordered and insulin scale being used in hospital setting vs pt's home regimen, pt resistant to information being given. Talkative, stating he was getting worked up about it, patient still appropriate while expressing frustrations and able to relax with reassurance. Car Pick Up Driver encouraged pt to order meals at specific time and notify nursing staff so he could have blood sugars checked at his desired time prior to eating meals, pt agreeable. Pleasant thereafter, compliant with cares and assessments. Up ind in room. Denies pain, vitals stable, on RA, afebrile. Call light within reach.
[2023-10-20 06:28] LABS: Basophils Absolute Auto 0.01 K/uL (0.00-0.30); Basophils Percent Auto 0.2 % (0.0-3.0); Hematocrit 38.6 % (37.0-53.0); Hemoglobin* 12.5 gm/dL (13.5-17.5); Immature Granulocytes Abs Auto 0.01 K/uL (0.00-0.30); Immature Granulocytes Pct Auto 0.2 %; Lymphocytes Absolute Auto 1.31 K/uL (0.90-2.90); Lymphocytes Percent Auto 22.2 % (20-44); Mean Corpuscular HGB Conc 32 gm/dL (32-36); Mean Corpuscular Hemoglobin 28 pg (26-34); Mean Corpuscular Volume 87 fL (80-100); Monocytes Percent Auto 7.6 % (0.0-11.0); Neutrophils Absolute Auto 4.12 K/uL (1.7-7.0); Neutrophils Percent Auto 69.8 % (42.0-72.0); Platelet Count* 225 K/uL (140-440); RDW Coefficient of Variation % 13.9 % (11.5-15.5); Red Blood Count 4.44 m/uL (4.30-5.90)
[2023-10-20 06:34] LABS: Slide Review Reflex No
[2023-10-20 07:04] LABS: Chloride* 103 mmol/L (96-114)
[2023-10-20 07:05] LABS: Potassium* 3.6 mmol/L (3.6-5.1); Sodium* 138 mmol/L (135-149)
[2023-10-20 07:07] LABS: Creatinine* 0.6 mg/dL (0.5-1.5); Est. Creatinine Clearance* 56.95; Estimated Glomerular Filt Rate 96 ml/min
[2023-10-20 07:08] LABS: Anion Gap 9 mEq/L (7-15); Blood Urea Nitrogen* 22 mg/dL (7-30); Calcium* 9.1 mg/dL (8.4-10.6); Carbon Dioxide* 26 mmol/L (20-32); Glucose* 97 mg/dL (60-115)
[2023-10-20 07:24] LABS: Troponin I* 1.14 ng/mL (0.01-0.04)
[2023-10-20 07:30] VITALS: BP 146/87; PULSE 70; PULSE 85; RESP 16; TEMP 36.6; O2SAT 94
[2023-10-20] MEDS: ASPIRIN 81 MG TAB.CHEW 324 MG PO (07:31)
[2023-10-20] MEDS: timoloL maleate 0.5 % 1 DROP EYE-BOTH (08:47)
[2023-10-20] MEDS: SODIUM CHLORIDE 0.9 % (FLUSH) 10 ML SYRINGE 5 ML IVF (08:47)
[2023-10-20] MEDS: IPRAT-ALBUT 0.5-2.5 MG/3 ML NEB 1 NEB IH (08:49)
[2023-10-20] MEDS: lisinopriL 5 MG TABLET PO (08:49)
[2023-10-20] MEDS: METFORMIN 500 MG TABLET PO (08:50)
[2023-10-20] MEDS: predniSONE 20 MG TABLET 60 MG PO (08:51)
[2023-10-20] MEDS: METOPROLOL TARTRATE 25 MG TABLET PO (08:53)
[2023-10-20] MEDS: ENOXAPARIN 80 MG/0.8 ML INJ SUBCUT (08:54)
[2023-10-20] MEDS: OSELTAMIVIR 30 MG CAPSULE PO (08:54)
[2023-10-20 09:07] LABS: Troponin I* 0.89 ng/mL (0.01-0.04)
[2023-10-20 11:13] VITALS: BP 138/63; PULSE 69; RESP 18; TEMP 36.6; O2SAT 91
--- NOTE | 2023-10-20 11:36 | NUTR.NU ---
RDN with nutrition screen related to diabetic diet. Patient admitted for Influenza A+, COPD Exacerbation, and NSTEMI. Current height 5ft 9in; weight 161lb 4.8oz; BMI is 23.89 kg/m2. Meal intakes have been adequate at 75-100% since admit. RDN visited with patient via room phone due to precautions. Patient reports stable weight recently. He foods a diabetic diet at home. He and his (designated caregiver) declined diet education at this time related to diabetes. RDN will continue to monitor and follow-up prn.
--- NOTE | 2023-10-20 14:43 | PC.NURSE ---
discharge pt was very upset this am. BS and insulin and med times. these where his main complaints/ spent time going over things with pt and got us in a better place. he is pleasant otherwise. family is here and loving and caring. SL in left arm was d/c, and tele was d/c before discharge. trop was elevated this am and EKG and chewable aspirin was given. Alert and oriented x 4. Denies any shortness of breath or chest pain. O2 sats 90-95% on RA. LS are diminish bilaterally with fine crackles in the bases. he does not remember all things that the MD and nurses say. have to explain things to him. encouraged TCDB and Aerobica use, independently. Independent in the room. he is eating, drinking and voiding with no problems went over discharge packet with pt and daughter. went over medications, appointment, instruction and instructions. answered all question. pt went over and signed personal belonging sheet. he got a w/c ride to his car.
--- NOTE | 2023-10-20 14:58 | P.DS_ITS ---
DS: Providers Provider Date Seen: 10/20/23 Date of admission: 10/18/23 16:17 Primary care physician: Junior Hobbs MD Admitting Clinician: Elio Trujillo MD Consults: 10/18/23 16:26 Consult to Respiratory Therapy [CONS] Routine Comment: Reason(s) for RT Consult:: Consult Attending Physician on discharge: Amalia Vargas MD Date of Discharge: 10/20/23 DS: Diagnosis Discharge Diagnosis (1) Influenza A: Status: Acute Problem details: -improved nicely with supportive cares and renally dosed tamiflu -continue/complete 5 day course of tamiflu -weaned to room air by discharge (2) Acute hypoxemic respiratory failure: Status: Acute Problem details: multifactorial: influenza A and COPD exacerbation and demand ischemia (3) Acute non-ST elevation myocardial infarction (NSTEMI): Status: Acute Problem details: - demand/stress ischemia - treatment dosed anticoagulation, aspirin, metoprolol, troponin is trending down - echo 2/6 reassuring - PCP to decide at follow up for stress echo vs aggressive risk factor management (4) COPD exacerbation: Status: Acute Problem details: -prednisone 60 mg PO x 5 days, no taper -weaned to room air -antiviral treatment for influenza A -no antibiotics DS: Summary Hospital Course Hospital Course: FINAL DIAGNOSIS/FOLLOW UP ISSUES: Influenza A - treated. Covid + initally but then felt to be false positive. +troponin c/w demand ischemia - consider outpatient stress echo BRIEF HOSPITAL COURSE: Patient was admitted for 3 days. Synopsis of acute inpatient issues are outlined above. Chronic medical conditions with notable findings outlined above. DISCHARGE MEDICATIONS: See Reconciled list - SIGNIFICANT CHANGES: Prednisone burst with taper Tamiflu, renally doses, complete 5 days Specific instructions to the patient and follow-up are outlined below. REVIEW OF SYSTEMS No new chest pain or dyspnea Pain controlled No voiding difficulties Tolerating diet challenge PHYSICAL EXAM: CONSTITUTIONAL: comfortable. breathing without distress. laughing, smiling. surrounded by family. VITAL SIGNS: see record. HEENT: Normocephalic, atraumatic. PERRL, EOMI, conjunctivae pink, no scleral icterus. Ears and nose externally normal. Pharynx normal. NECK: No JVD. No carotid bruit, no thyromegaly, no adenopathy. CHEST: Clear to auscultation bilaterally. HEART: S1 and S2 normal. Edema minimal ABDOMEN: Soft, nontender. Normal bowel sounds. MUSCULOSKELETAL: No gross joint deformity or swelling. NEURO: Cranial nerves intact. Grossly intact. No asymmetric findings. SKIN: No rashes, petechiae, concerning changes PSYCHIATRIC: Mood euthymic. DISPOSITION: home with Time spent on discharge 37 minutes. Time Spent with Patient Time attestation: Total time spent providing and/or coordinating discharge services: Exam Const: Vital Signs, click to edit/add: Vital Signs - 24 hr 10/19/23 15:00 10/19/23 16:00 10/19/23 16:00 Temperature Pulse Rate 72 Pulse Rate [Left P ulse Oximeter] 81 Pulse Rate [Right Radial] 71 Respiratory Rate 18 18 Blood Pressure [Le ft Arm] Pulse Oximetry 91 Oxygen Delivery Me thod Nasal Cannula Oxygen Flow Rate 1 10/19/23 16:00 10/19/23 17:00 10/19/23 21:00 Temperature 97.4 F L 98.4 F Pulse Rate Pulse Rate [Left P ulse Oximeter] 81 75 Pulse Rate [Right Radial] 81 75 Respiratory Rate 18 18 Blood Pressure [Le ft Arm] 114/66 136/69 Pulse Oximetry 91 91 91 Oxygen Delivery Me thod Nasal Cannula Oxygen Flow Rate 1 10/19/23 23:15 10/20/23 04:20 10/20/23 07:30 Temperature 98.0 F Pulse Rate 63 70 Pulse Rate [Left P ulse Oximeter] 64 Pulse Rate [Right Radial] Respiratory Rate 16 Blood Pressure [Le ft Arm] 109/67 Pulse Oximetry 92 Oxygen Delivery Me thod Room Air Oxygen Flow Rate 10/20/23 07:30 10/20/23 07:30 10/20/23 07:30 Temperature 97.9 F Pulse Rate Pulse Rate [Left P ulse Oximeter] 85 85 Pulse Rate [Right Radial] 85 85 Respiratory Rate 16 16 16 Blood Pressure [Le ft Arm] 146/87 H Pulse Oximetry 94 94 Oxygen Delivery Me thod Room Air Room Air Oxygen Flow Rate 10/20/23 11:13 Temperature 97.8 F Pulse Rate Pulse Rate [Left P ulse Oximeter] 69 Pulse Rate [Right Radial] 69 Respiratory Rate 18 Blood Pressure [Le ft Arm] 138/63 Pulse Oximetry 91 Oxygen Delivery Me thod Room Air Oxygen Flow Rate DS: Data Data Completed and Pending Labs on day of discharge: Labs from last 24 hours 10/20/23 10/20/23 08:17 06:08 WBC 5.90 RBC 4.44 Hgb 12.5 L Hct 38.6 MCV 87 MCH 28 MCHC 32 RDW Coeff of Renu 13.9 Plt Count 225 Neut % (Auto) 69.8 Lymph % (Auto) 22.2 Sargent % (Auto) 7.6 Eos % (Auto) 0.0 Baso % (Auto) 0.2 Neut # (Auto) 4.12 Lymph # (Auto) 1.31 Sargent # (Auto) 0.40 Eos # (Auto) 0.00 Baso # (Auto) 0.01 Abs Immat Gran (auto) 0.01 Imm/Tot Granulo (auto) 0.2 Sodium 138 Potassium 3.6 Chloride 103 Carbon Dioxide 26 Anion Gap 9 BUN 22 Creatinine 0.6 Estimated Creat Clear 56.95 Estimated GFR 96 Glucose 97 Calcium 9.1 Troponin I 0.89 H* 1.14 H* Discharge Plan Discharge Disposition: Home, Self-Care Date of Admission: 10/18/23 16:17 Attending Provider on Discharge: Tatyana Vargas Primary Care Provider: Junior Hobbs Condition: Stable Anticipated Discharge Date/Time: 10/20/23 12:29 Discharge Medications: New prednisone 20 mg Tablet 60 mg PO DAILYWM Qty: 6 0RF oseltamivir [Tamiflu] 30 mg Capsule 30 mg PO BID Qty: 6 0RF Continued latanoprost 0.005 % drops 1 drp ophthalmic (eye) QPM atorvastatin 10 mg tablet 10 mg PO DAILY lisinopril 5 mg tablet 5 mg PO DAILY albuterol sulfate 90 mcg/actuation HFA aerosol inhaler 2 inh inhalation QID PRN timolol maleate 0.5 % drops 1 drp ophthalmic (eye) BID Patient Comments: [NO ORIGINAL SIG] hydrochlorothiazide 12.5 mg tablet 12.5 mg PO DAILY metformin 500 mg tablet 500 mg PO BIDWMEAL aspirin [Adult Low Dose Aspirin] 81 mg tablet,delayed release (DR/EC) 81 mg PO DAILY ascorbic acid (vitamin C) 500 mg capsule 500 mg PO DAILY cholecalciferol (vitamin D3) 25 mcg (1,000 unit) capsule 25 mcg PO DAILY Discharge Orders: Discharge Order (Routine); Ordered 02/07/24 Ordered By: Tatyana Vargas Patient Education: Prednisone (By mouth), Oseltamivir (By mouth) (Tamiflu), Influenza (DC) Additional Instructions: 1. Finish Tamiflu course. This is taken twice a day; last dose is the morning of the . 2. Finish Prednisone - three tabs of the 20 mg = 60mg daily for two more days. last dose of three tabs is the 9th Activity Level: Activity as Tolerated Discharge Diet: Diabetic Follow Up Appointments: Junior Hobbs MD [Primary Care Provider] - 11/03/23 (hospital follow-up) Edie Arreola PA-C [Referring] - 11/03/23 8:40 am ([facility] for follow-up.) Forms: [employer] Info Instructions
== END 2023-10-20 14:35 | disposition home or self-care (01) | DRG 193 ==
LOC: ED 15:31 → MEDSURG 16:12
PROVIDERS: Family Medicine; Physician Assistant; Admitting Provider Family Medicine; Emergency Provider Emergency Medicine; PCP Surgery; Visit Provider Family Medicine
DX: J10.1 Influenza due to other identified influenza virus with other respiratory manifestations (principal); I21.A1 Myocardial infarction type 2; J96.01 Acute respiratory failure with hypoxia; J44.1 Chronic obstructive pulmonary disease with (acute) exacerbation; E11.9 Type 2 diabetes mellitus without complications; Z79.84 Long term (current) use of oral hypoglycemic drugs; I10 Essential (primary) hypertension
CPT/HCPCS: 36415; 71046; 80048; 82803; 82962; 83036; 83605; 83735; 83880; 84484; 85025; 85027; 85379; 85610; 85730; 87426; 87631; 87635; 93005; 93306; 94640; 94664; 94761; 99284; 99285; 99291; A9270; J1644; J1650; J2930; J7030; J7512